=== PATIENT | male | born 1960 | race African-American/Black ===

== ENCOUNTER 2018-06-10 09:53 | Emergency (ER) | payer OTHER ==
--- NOTE | 2018-06-10 10:16 | ED Physician Documentation ---
General Adult - HISTORIAN Historian: patient - HPI Stated Complaint: left groin pain Chief Complaint: General Adult Additional Information: Patient presents to ED with left groin pain since Saturday night. Patient reports lifting a heavy container at work from ground level in a twisting motion. He states he felt a "pop" in his left thigh/groin area. Since that time he has had considerable amount of pain in his left groin especially with left leg adduction. Onset: days ago (3) Timing: still present Severity: moderate - ROS CONST: no problems EYES/ENT: none CVS/RESP: none GI/: none MS/SKIN/LYMPH: none NEURO/PSYCH: denies: headache - PAST HX Past History: none Other History: none Surgeries/Procedures: none Allergies/Adverse Reactions: Allergies Allergy/AdvReac Type Severity Reaction Status Date / Time No Known Allergies Allergy Unverified 01/04/17 15:32 Home Medications: Ambulatory Orders Medication Instructions Recorded Naproxen 500 mg PO BID PRN #60 tablet. 06/10/18 Orphenadrine Citrate [Norflex] 100 mg PO BID PRN #40 tab 06/10/18 - SOCIAL HX Smoking History: non-smoker Alcohol Use: none Drug Use: none - FAMILY HX Family History: No - REVIEWED ASSESSMENTS Nursing Assessment Reviewed: Yes Vitals Reviewed: Yes ED Results Lab/Radiology - Radiology Radiology Impressions: US scrotum - negative for hernia. General Adult Physical Exam - PHYSICAL EXAM GENERAL APPEARANCE: no distress EENT: PHYLICIA NECK: supple RESPIRATORY: no resp distress CVS: reg rate & rhythm, heart sounds normal ABDOMEN: soft, normal bowel sounds BACK: normal inspection SKIN: warm/dry EXTREMITIES: other (left groin tenderness at adductors insertion site) NEURO: oriented X3 Discharge Clincal Impression: Left groin pain Prescriptions: Naproxen 500 mg PO BID PRN #60 tablet. PRZeenat Reason: pain Orphenadrine Citrate [Norflex] 100 mg PO BID PRN #40 tab PRN Reason: muscle spasm Referrals: Primary Doctor,No [Primary Care Provider] - 2 Days Additional Instructions: 1. Naprosyn twice daily for pain/inflammation 2. Norflex as needed for muscle spasm 3. Keep FLASH wrap in place with activity, remove with rest 4. Follow up with PCP within 1 week 5. Return to ER for new or worsening symptoms Condition: Stable Decision to Admit: NO Date of Decison to Admit: 06/10/18 Decision Time: 11:08
[2018-06-10] MEDS: ORPHENADRINE CITRATE 60 MG/2 ML ML IM ONE (11:00)
[2018-06-10] MEDS: KETOROLAC TROMETHAMINE 60 MG/2 ML VIAL IM ONE (11:00)
[2018-06-10 11:26] VITALS: BP 122/88
--- NOTE | 2018-06-10 11:59 | Diagnostic Imaging Report ---
ATUL MARTINEZ [facility] [id number] [facility] [address] 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 Left testicle measures 4.6 x 2.8 x 3.4 cm. Normal homogeneous echogenicity centrally. No mass. Cyst within the right testicle measuring 5 mm diameter. Normal flow centrally on color analysis. Normal Doppler waveforms. Epididymis without gross irregularity. Flow surrounding the left testicle. Impression: No intratesticular mass. No torsion. Right testicular cyst. Left hydrocele. Electronically signed on Jun 10, 2018 11:28:34 AM DIVIDER OPERATOR by: Alistair MILLS
== END 2018-06-10 11:22 ==
LOC: ED 09:53
DX: R10.32 Left lower quadrant pain (principal)
CPT/HCPCS: 76870; 96372; 99283; J1885; J2360

== ENCOUNTER 2018-07-18 16:17 | Outpatient (CLI) | payer OTHER ==
--- NOTE | 2018-07-19 06:20 | Diagnostic Imaging Report ---
RADHA PAIGE [facility] [address] [facility].[address] [address] Report Submission Date: Jul 18, 2018 4:50:16 PM CDT Patient Study Name: ABBIE BELTRÁN Date: Jul 18, 2018 4:27:50 PM CDT Modality Type: DX Gender: M Description: BILAT HIPS 2V (W/PEL IF DONE) : 56 Institution: [facility] Physician: RADHA PAIGE Examination: Plain film hips History: Hip discomfort Comparison exams: None provided Findings: 3 views of the pelvis and hips demonstrate normal cortical margins. No fracture no dislocation. Large subchondral cysts involving the superior left acetabular region. No soft tissue abnormality. Impression: Left superior acetabular degenerative cyst. No acute appearing osseous abnormality. Electronically signed on Jul 18, 2018 4:50:16 PM CDT by: Alistair MILLS
== END 2018-07-18 16:30 ==
LOC: RAD 16:17
PROVIDERS: ATTEND Family Medicine
DX: M25.852 Other specified joint disorders, left hip (principal); M25.552 Pain in left hip
CPT/HCPCS: 73521